=== PATIENT | female | born 1965 | race Asian ===

== ENCOUNTER 2018-07-04 13:32 | Emergency (ER) | payer SELFPAY ==
[2018-07-04 13:36] VITALS: Ht 152.4 cm
[2018-07-04 14:56] VITALS: BP 159/84
== END 2018-07-04 14:56 | disposition home or self-care (01) ==
LOC: ED 13:32
DX: S50.312A Abrasion of left elbow, initial encounter (principal); W18.39XA Other fall on same level, initial encounter; Y93.89 Activity, other specified; Y92.89 Other specified places as the place of occurrence of the external cause; Y99.8 Other external cause status